=== PATIENT | male | born 1975 | race Two or more races ===

== ENCOUNTER 2023-05-29 22:32 | Emergency (ER) | payer OTHER ==
[~2023-05-29] VITALS: Ht 167.6 cm; Wt 83.0 kg
[2023-05-29 23:07] VITALS: BP 127/87; PULSE 100; RESP 16; TEMP 97.9; O2SAT 95
[2023-05-30] MEDS ORDERED: GABA-1308 PO (01:36)
[2023-05-30] MEDS ORDERED: IBUP1TAB5 PO (01:36)
== END 2023-05-30 01:45 | disposition home or self-care (01) ==
LOC: ER 22:32
DX: M79.604 Pain in right leg (principal); G62.9 Polyneuropathy, unspecified
CPT/HCPCS: 73590; 82962; 93971

== ENCOUNTER 2024-03-13 22:35 | Emergency (ER) | payer OTHER ==
[~2024-03-13] VITALS: Ht 167.6 cm; Wt 90.9 kg
[~2024-03-13 22:35] MED LIST: GABA-1308 PO; IBUP1TAB5 PO
[2024-03-13 22:57] LABS: Basophils # (auto) 0.1 10 ^3/uL (0-0.2); Basophils % (auto) 1.2 % (0.0-2.0); Eosinophils # (auto) 0.1 10 ^3/uL (0-0.8); Eosinophils % (auto) 0.9 % (0.0-7.0); Hematocrit 46.2 % (41.0-53.0); Hemoglobin 16.2 g/dL (13.5-17.5); Lymphocytes # (auto) 2.6 10 ^3/uL (0.4-5.4); Lymphocytes % (auto) 28.8 % (10.0-50.0); Mean Corpuscular Hemoglobin 31.7 pg (28.0-32.0); Mean Corpuscular Hgb Conc. 35.1 g/dL (32.0-36.0); Mean Corpuscular Volume 90.2 fL (80.0-100.0); Monocytes # (auto) 0.7 10 ^3/uL (0-1.3); Monocytes % (auto) 7.3 % (0.0-12.0); Neutrophils # (auto) 5.6 10 ^3/uL (1.6-8.6); Neutrophils % (auto) 61.8 % (37.0-80.0); Nucleated Red Blood Cells % 0.1 %; Red Blood Cells 5.13 10^6/uL (4.5-5.90); Red Cell Distribution Width 13.9 % (11.8-14.3); White Blood Cell 9.1 10^3/uL (4.4-10.8)
[2024-03-13 23:17] LABS: Alanine Aminotransferase 22 U/L (7-40); Albumin 4.2 g/dL (3.2-4.8); Alkaline Phosphatase 149 U/L (46-116); Anion Gap 9 (5-15); Aspartate Aminotransferase 21 U/L (13-40); BUN/Creatinine Ratio 14.3 (10.0-20.0); Blood Urea Nitrogen 14 mg/dL (9-23); Calcium 9.3 mg/dL (8.7-10.4); Carbon Dioxide 22 mmol/L (20-30); Chloride 110 mmol/L (98-107); Glucose 97 mg/dL (74-106); INR 1.04 (0.9-1.15); Partial Thromboplastin Time 24.4 SEC (24.5-34.5); Potassium 3.7 mmol/L (3.5-5.1); Sodium 141 mmol/L (136-145)
[2024-03-13 23:18] LABS: Bilirubin, Total 0.7 mg/dL (0.2-1.0); Total Protein 7.1 g/dL (5.7-8.2)
[2024-03-14] MEDS ORDERED: IBUP-1455 PO (00:46)
[2024-03-14] MEDS: KETOROLAC TROMETH 60MG/2ML VIAL IM ONE (01:11)
[2024-03-14 01:16] VITALS: BP 122/89; PULSE 86; RESP 16; TEMP 97.9; O2SAT 97
== END 2024-03-14 01:20 | disposition home or self-care (01) ==
LOC: ER 22:35
DX: M94.0 Chondrocostal junction syndrome [Tietze] (principal); R07.9 Chest pain, unspecified; Z90.49 Acquired absence of other specified parts of digestive tract; Z79.899 Other long term (current) drug therapy
CPT/HCPCS: 36415; 71045; 80053; 83735; 83880; 84484; 85025; 85610; 85730; 93005; 96372; 99285; J1885